=== PATIENT | male | born 2000 | race Caucasian/White ===

== ENCOUNTER 2023-06-25 15:39 | Emergency (ER) | payer OTHER ==
[2023-06-25 16:07] VITALS: O2SAT 100
--- NOTE | 2023-06-25 16:52 | ED Physician Documentation ---
PD HPI CHEST PAIN - Stated complaint Stated Complaint: CHEST PX - Chief complaint Chief Complaint: Cardiac - History obtained from History obtained from: Patient - Additional information Additional information: Patient is a 22-year-old male with no significant past medical history presenting for evaluation of intermittent episodes of left-sided chest pain. Patient states he feels the pain mostly when he is moving or changing positions or turning over in bed. He feels it more also if he is laying back. Denies any recent injuries or trauma. He did take a dose of ibuprofen yesterday which she felt like did not help significantly. No radiation to the pain. Denies shortness of air. No recent illness with fever, cough or congestion. No family history of early coronary artery disease. No history of PE or DVT, recent travel or immobilization. Denies drug or alcohol use. Review of Systems Constitutional: denies: Fever Cardiac: reports: Chest pain / pressure Respiratory: denies: Dyspnea GI: denies: Abdominal Pain Neurologic: denies: Syncope PD PAST MEDICAL HISTORY - Past Medical History Past Medical History: No Cardiovascular: None Respiratory: None Neuro: None Endocrine/Autoimmune: None GI: None : None HEENT: None Psych: None Musculoskeletal: None Derm: None - Past Surgical History Past Surgical History: No - Present Medications Home Medications: Ambulatory Orders Medication Instructions Recorded Confirmed No Known Home Medications 06/25/23 06/25/23 - Allergies Allergies/Adverse Reactions: Allergies Allergy/AdvReac Type Severity Reaction Status Date / Time No Known Drug Allergies Allergy Verified 06/25/23 16:01 - Social History Does the pt smoke?: No Smoking Status: Never smoker Does the pt drink ETOH?: No Does the pt have substance abuse?: No - Immunizations Immunizations are current?: No - POLST Patient has POLST: No PD ED PE NORMAL - General General: Alert and oriented X 3, No acute distress, Well developed/nourished - HEENT HEENT: Atraumatic - Neck Neck: Supple, no meningeal sign - Cardiac Cardiac: RRR, Strong equal pulses, Other (Left chest wall tenderness to palpation, no rash) - Respiratory Respiratory: No respiratory distress, Clear bilaterally - Abdomen Abdomen: Soft, Non tender, Non distended - Derm Derm: Warm and dry - Extremities Extremities: No edema, No calf tenderness / cord - Neuro Neuro: Normal speech Results - Vitals Vitals: Vital Signs - 24 hr 06/25/23 15:57 Temperature 37.3 C Heart Rate 71 Respiratory 16 Rate Blood Pressure 119/67 O2 Saturation 100 Oxygen O2 Source Room air - EKG (time done) 1605 EKG releavant findings:: EKG personally interpreted by author of this note. Relevant findings are: Rate 76, sinus rhythm, no STEMI, QTc 408 - Labs Labs: Laboratory Tests 06/25/23 06/25/23 16:51 16:51 WBC 6.8 RBC 5.51 Hgb 17.0 Hct 48.3 MCV 87.7 MCH 30.9 MCHC 35.2 RDW 12.3 Plt Count 293 MPV 9.7 Neut # (Auto) 4.1 Lymph # (Auto) 2.0 [place] # (Auto) 0.5 Eos # (Auto) 0.1 Baso # (Auto) 0.1 Absolute Nucleated RBC 0.00 Nucleated RBC % 0.0 Sodium 139 Potassium 3.9 Chloride 104 Carbon Dioxide 28 Anion Gap 7.0 BUN 16 Creatinine 0.9 Estimated GFR (MDRD) 105 Glucose 84 Calcium 9.9 Total Bilirubin 0.6 AST 18 ALT 15 Alkaline Phosphatase 43 Troponin I High Sens < 2.3 L Total Protein 7.2 Albumin 4.8 Globulin 2.4 Albumin/Globulin Ratio 2.0 Lipase 25 PD Medical Decision Making - ED course Complexity details: reviewed results, re-evaluated patient, d/w patient ED course: Patient is a 22-year-old male presenting for evaluation of left-sided chest pain that has been intermittent since Saturday. Worse with certain movements. No known risk factors for coronary artery disease or pulmonary embolism. EKG is re viewed, no signs of acute ischemia. CBC, chemistry, troponin were reviewed and without significant findings. Doubt ACS. PERC negative. Chest x-ray is clear with normal heart size. Patient counseled on trial of anti-inflammatories and follow-up with the [facility]. Requesting light duty for work which I have provided a note for. Advised on concerning symptoms to return for. Departure - Departure Disposition: 01 Home, Self Care Clinical Impression: Chest pain Condition: Stable Instructions: ED Chest Pain Atypical Unkn Cause Follow-Up: [facility] [Provider Group] Comments: Your testing today does not show any significant abnormalities. Your chest x- ray is clear and there are no signs of inflammation or issues with your heart. I would recommend follow-up with the [facility]. Continue with anti- inflammatories as your pain does seem worse with certain movements. Return to the ER with any worsening. Forms: PCP List, Activity restrictions
[2023-06-25 16:57] LABS: BASOPHILS # (AUTO) 0.1 10^3/uL (0.0-0.1); BASOPHILS % (AUTO) 0.9 %; EOSINOPHILS # (AUTO) 0.1 10^3/uL (0.0-0.7); EOSINOPHILS % (AUTO) 2.1 %; HCT - HEMATOCRIT 48.3 % (42.0-52.0); LYMPHOCYTES % (AUTO) 29.2 %; MEAN CORPUSCULAR HEMOGLOBIN 30.9 pg (27.0-31.0); MEAN CORPUSCULAR HGB CONC 35.2 g/dL (32.0-36.0); MEAN CORPUSCULAR VOLUME 87.7 fL (80.0-94.0); MEAN PLATELET VOLUME 9.7 fL (7.4-11.4); MONOCYTES # (AUTO) 0.5 10^3/uL (0.0-1.0); MONOCYTES % (AUTO) 7.4 %; NEUTROPHILS # (AUTO) 4.1 10^3/uL (1.5-6.6); NEUTROPHILS % (AUTO) 60.3 %; PLT - PLATELET COUNT 293 10^3/uL (130-450); RED BLOOD COUNT 5.51 10^6/uL (4.70-6.10); RED CELL DISTRIBUTION WIDTH 12.3 % (12.0-15.0); WHITE BLOOD COUNT 6.8 x10^3/uL (4.8-10.8)
--- NOTE | 2023-06-25 17:07 | XRAY Report ---
PROCEDURE: Chest 1V INDICATIONS: L CP TECHNIQUE: One view of the chest was acquired. COMPARISON: None. FINDINGS: Surgical changes and devices: None. Lungs and pleura: No pleural effusions or pneumothorax. Lungs are clear. Mediastinum: Mediastinal contours appear normal. Heart size is normal. Bones and chest wall: No suspicious bony lesions. Overlying soft tissues appear unremarkable. IMPRESSION: No acute cardiopulmonary process. Reviewed by: Tiarra Camarena MD on 06/25/2023 5:05 PM PDT Approved by: Tiarra Camarena MD on 06/25/2023 5:05 PM PDT Station ID: [id number]
[2023-06-25 17:11] LABS: ALBUMIN 4.8 g/dL (3.2-5.5); ALKALINE PHOSPHATASE 43 IU/L (42-121); ALT ALANINE AMINOTRANSFERASE 15 IU/L (10-60); AST ASPARTATE AMINOTRANSFERASE 18 IU/L (10-42); BILIRUBIN,TOTAL 0.6 mg/dL (0.2-1.0); BUN - BLOOD UREA NITROGEN 16 mg/dL (6-20); CALCIUM 9.9 mg/dL (8.5-10.3); CARBON DIOXIDE - CO2 28 mmol/L (21-32); CHLORIDE 104 mmol/L (101-111); CREATININE 0.9 mg/dL (0.6-1.3); GFR - MDRD 105 (>89); GLUCOSE 84 mg/dL (74-104); LIPASE 25 U/L (11-82); POTASSIUM 3.9 mmol/L (3.5-4.5); SODIUM 139 mmol/L (135-145); TOTAL PROTEIN 7.2 g/dL (6.4-8.9)
[2023-06-25 17:19] LABS: TROPONIN I HIGH SENSITIVITY < 2.3 ng/L (2.3-19.7)
[2023-06-25 17:42] VITALS: BP 119/76
== END 2023-06-25 17:41 | disposition home or self-care (01) ==
LOC: ED 15:39
DX: R07.9 Chest pain, unspecified (principal)
CPT/HCPCS: 36415; 80053; 83690; 84484; 85025; 93005; 99284